=== PATIENT | female | born 1955 | race Hispanic/Latino ===

== ENCOUNTER → 2025-04-30 10:29 | Outpatient (REF) | payer MEDICARE, SELFPAY | LOC: HWWDC 10:29 | PROVIDERS: ATTENDING PHYSICIAN Family Medicine | DX: Z12.31 Encounter for screening mammogram for malignant neoplasm of breast (principal); Z13.820 Encounter for screening for osteoporosis; M85.89 Other specified disorders of bone density and structure, multiple sites | CPT/HCPCS: 77063; 77067; 77080 ==